=== PATIENT | female | born 1940 | race African-American/Black ===

== ENCOUNTER 2016-10-18 05:43 | Day surgery (SDC) | payer MEDICARE ==
[2016-10-18] MEDS ORDERED: ECOTRIN PO ONE (06:09)
[2016-10-18 06:41] LABS: Basophils % (Auto) 1.2 % (0.0-1.8); Eosinophils % (Auto) 3.8 % (0.0-4.3); Hematocrit 39.8 % (30.3-42.9); Hemoglobin 13.4 gm/dl (10.1-14.3); Mean Corpuscular HGB Conc 34 % (30-34); Mean Corpuscular Hemoglobin 29 pg (28-32); Mean Corpuscular Volume 87 fl (79-97); Platelet Count 236 K/mm3 (140-440); Red Cell Distribution Width 12.6 % (13.2-15.2); White Blood Count 4.7 K/mm3 (4.5-11.0)
[2016-10-18 06:54] LABS: INR 0.96 (0.87-1.13)
[2016-10-18 06:59] LABS: Anion Gap 19 mmol/L; BUN/Creatinine Ratio 24.44; Blood Urea Nitrogen 22 mg/dL (7-17); Calcium 9.3 mg/dL (8.4-10.2); Carbon Dioxide 24 mmol/L (22-30); Chloride 102.3 mmol/L (98-107); Glucose 152 mg/dL (65-100); Potassium 4.3 mmol/L (3.6-5.0); Sodium 141 mmol/L (137-145)
[2016-10-18] MEDS ORDERED: NACL 0.9% 500 ML 500 ML IV SCH (07:00)
[2016-10-18] MEDS ORDERED: HEPARIN/NS 5000 UNIT/500ML(CATH LAB) 1,000 ML IR ONE (07:52)
[2016-10-18] MEDS ORDERED: NITROGLYCERIN SYRINGE 3 ML ONE (07:53)
[2016-10-18] MEDS ORDERED: HEPARIN 10,000 UNITS/10 ML ONE (07:53)
[2016-10-18] MEDS ORDERED: CALAN ONE (07:53)
[2016-10-18] MEDS ORDERED: XYLOCAINE 2% INFILTRATI ONE (07:53)
[2016-10-18] MEDS ORDERED: VERSED ONE (07:56)
[2016-10-18] MEDS ORDERED: SUBLIMAZE ONE (07:56)
--- NOTE | 2016-10-18 09:18 | Short Stay Summary ---
<MAYASTEVEMARISELA MANISHA - Last Filed: 10/18/16 09:21> Short Stay Documentation Date of service: 10/18/16 - History H&P: obtained from office - Allergies and Medications Current Medications: Allergies No Known Allergies Allergy (Verified 10/18/16 06:03) Home Medications Medication Instructions Recorded Confirmed Last Taken Type Aspirin [Adult Low Dose Aspirin EC] 81 mg PO DAILY 10/18/16 10/18/16 10/17/16 History Fenofibrate [Lofibra] 54 mg PO QDAY 10/18/16 10/18/16 10/17/16 History Magnesium Oxide [Magnesium] 400 mg PO DAILY 10/18/16 10/18/16 10/17/16 History Potassium Gluconate [Potassium 550 mg PO DAILY 10/18/16 10/18/16 10/17/16 History Gluconate] Pravastatin Sodium [Pravastatin] 10 mg PO QHS 10/18/16 10/18/16 10/17/16 History glipiZIDE [glipiZIDE ER] 5 mg PO QAM 10/18/16 10/18/16 10/17/16 History metFORMIN [Glucophage] 500 mg PO QDAY 10/18/16 10/18/16 10/17/16 History Active Medications Sodium Chloride (Nacl 0.9% 500 Ml) 500 mls @ 50 mls/hr IV DIRECT MARCO Stop: 10/18/16 16:59 Last Admin: 10/18/16 06:55 Dose: 50 mls/hr - Brief post op/procedure progress note Date of procedure: 10/18/16 Procedure: LHC - Hospital course Hospital course: The patient is a 76 YO male with a past medical history significant for HLP, DM , chest pain, and abnormal stress test. He presented today for scheduled elective diagnostic LHC and subsequently underwent LHC via right radial artery per Dr. Carreon. Please see cath report for findings. He remained clinically and hemodynamically stable throughout the procedure and is cleared for discharge following completion of post-cath bedrest and order set. - Disposition Condition at discharge: Stable Disposition: DISCHARGED TO HOME OR SELFCARE - Discharge Diagnoses (1) Abnormal stress test Status: Chronic (2) Hyperlipidemia Status: Chronic QualifierTitle: Hyperlipidemia type: H (3) Chest pain Status: Chronic QualifierTitle: Chest pain type: C Short Stay Discharge Plan Activity: no restrictions Weight Bearing Status: Full Weight Bearing Diet: low cholesterol Wound: open to air, keep clean and dry Follow up with: JESS RAY MD [Staff Physician] - 7 Days (10/29/2016 @ 1:30PM) <DUSTIN CARREON - Last Filed: 10/18/16 09:48> Short Stay Documentation - Allergies and Medications Current Medications: Allergies No Known Allergies Allergy (Verified 10/18/16 06:03) Home Medications Medication Instructions Recorded Confirmed Last Taken Type Aspirin [Adult Low Dose Aspirin EC] 81 mg PO DAILY 10/18/16 10/18/16 10/17/16 History Fenofibrate [Lofibra] 54 mg PO QDAY 10/18/16 10/18/16 10/17/16 History Magnesium Oxide [Magnesium] 400 mg PO DAILY 10/18/16 10/18/16 10/17/16 History Potassium Gluconate 550 mg PO DAILY 10/18/16 10/18/16 10/17/16 History Pravastatin Sodium [Pravastatin] 10 mg PO QHS 10/18/16 10/18/16 10/17/16 History glipiZIDE [glipiZIDE ER] 5 mg PO QAM 10/18/16 10/18/16 10/17/16 History metFORMIN [Glucophage] 500 mg PO QDAY 10/18/16 10/18/16 10/17/16 History Active Medications Sodium Chloride (Nacl 0.9% 500 Ml) 500 mls @ 50 mls/hr IV DIRECT MARCO Stop: 10/18/16 16:59 Last Admin: 10/18/16 06:55 Dose: 50 mls/hr - Brief post op/procedure progress note Pre-op diagnosis: sob Post-op diagnosis: other (triple vessel cad) Anesthesia: local Estimated blood loss: none Pathology: none Specimen disposition: to lab - Discharge Diagnoses (1) CAD (coronary artery disease) Status: Acute Qualifiers: Coronary Disease-Associated Artery/Lesion type: [place] artery [place] vs. transplanted heart: N Associated angina: with stable angina (2) Abnormal stress test Status: Chronic (3) Chest pain Status: Chronic Qualifiers: Chest pain type: chest pain due to myocardial ischemia Qualified Code(s): I20.9 - Angina pectoris, unspecified (4) Hyperlipidemia Status: Chronic Qualifiers: Hyperlipidemia type: mixed hyperlipidemia Qualified Code(s): E78.2 - Mixed hyperlipidemia Short Stay Discharge Plan Activity: advance as tolerated Diet: low fat
--- NOTE | 2016-10-18 10:34 | Cardiac Catherization Report ---
LEFT HEART CATHETERIZATION CLINICAL INFORMATION: This is a patient of dr garcia 76-year-old female patient of hypertension, hyperlipidemia who has been having exertional symptoms while playing tennis. Had a stress test showed large ischemia in the inferior region, is here for left heart catheterization. Left heart catheterization performed via the right radial artery, sterile technique, local anesthesia, 6-[place] radial sheath inserted. Left system with a JL4 catheter. FINDINGS: 1. Left main is large caliber patent, LAD proximal to mid long 80% lesion, mid to distal large caliber vessel patent, small diagonal 1 patent. 2. Circumflex and AV groove is a medium caliber vessel is patent. OM1 ostial has a 90% lesion and then proximal diffuse 70% going to a large caliber OM1. Distal vessel is large with multiple branches patent. 3. Extensive left to right collaterals feeding into medium caliber PDA and PLV. 4. RCA mid is 100% flush occlusion. 5. LV gram done in LADARIUS and ZIMMERMAN view shows normal LV function, EF 55%-60%. LVEDP is 10 mmHg. LV was 133/10, aortic is 125/58. No significant gradient across the aortic valve on pullback. 5-[place] catheters were taken over a guidewire. 6-[place] radial sheath was discontinued. Radial dressing applied. No hematoma. No bleeding. SUMMARY: 1. Extensive triple vessel disease with left main patent, LAD proximal, mid lad diffuse 80% and rest of lad medium cailber patent, obtuse marginal ostial 90% with proximal 70% and 100% mid RCA with left to right collaterals. 2. Normal LV function. The patient will be referred to [place] for bypass surgery. Discussed this in detail with the patient and the patient's . JOB# [id number] TIMOTEO/RICCARDO CASTANO
[2016-10-18 11:24] VITALS: BP 116/79
== END 2016-10-18 11:30 | disposition home or self-care (01) ==
LOC: OPU 05:43
PROVIDERS: ATTEND Internal Medicine
DX: I25.10 Atherosclerotic heart disease of native coronary artery without angina pectoris (principal); I10 Essential (primary) hypertension; E11.9 Type 2 diabetes mellitus without complications; E78.4 Other hyperlipidemia; Z79.899 Other long term (current) drug therapy; Z79.84 Long term (current) use of oral hypoglycemic drugs; Z79.82 Long term (current) use of aspirin; Z79.01 Long term (current) use of anticoagulants; Z80.3 Family history of malignant neoplasm of breast; Z83.3 Family history of diabetes mellitus; Z82.49 Family history of ischemic heart disease and other diseases of the circulatory system; Z82.3 Family history of stroke
CPT/HCPCS: 36415; 80048; 85025; 85610; 85730; 93005; 93010; 93458; C1894; J1644; J2250; J3010; J7040; Q9967